=== PATIENT | male | born 1965 | race Caucasian/White ===

== ENCOUNTER → 2018-08-13 11:29 | Outpatient (CLI) | payer BC, SELFPAY ==
--- NOTE | 2018-08-13 11:31 | DI.RAD.S_ITS ---
PROCEDURE: XR CHEST 2V INDICATIONS: cough TECHNIQUE: 2 views of the chest were acquired. COMPARISON: None. FINDINGS: Surgical changes and devices: None. Lungs and pleura: Lungs are clear. No pleural effusions or pneumothorax. Mediastinum: Mediastinal contours are normal. Heart size is normal. Bones and chest wall: No suspicious bony abnormalities. Soft tissues appear unremarkable. IMPRESSION: Reduced inspiratory line, no acute disease. Dictated by: Jan Finn M.D. on 08/13/2018 at 11:52 Approved by: Jan Finn M.D. on 08/13/2018 at 11:52
== END ==
LOC: RAD 11:31
PROVIDERS: Visit Provider Physician Assistant
DX: R05 Cough (principal)
CPT/HCPCS: 71046

== ENCOUNTER → 2020-03-22 08:14 | Outpatient (CLI) | payer OTHER, SELFPAY ==
[2020-03-22 09:57] LABS: Prostate Specific Antigen 2.91 ng/mL (0.10-4.00)
== END ==
PROVIDERS: Referring Provider Family Medicine; Visit Provider Family Medicine
DX: R97.20 Elevated prostate specific antigen [PSA] (principal)
CPT/HCPCS: 36415; 84153